=== PATIENT | female | born 1985 | race African-American/Black ===

== ENCOUNTER 2018-04-28 14:33 | Emergency (ER) | payer OTHER ==
[~2018-04-28] VITALS: Ht 167.6 cm; Wt 97.5 kg
[2018-04-28 14:40] VITALS: BP 130/90
[2018-04-28] MEDS ORDERED: Morphine Sulfate 4mg/ml Inj (IV USE ONLY) IVP ONE (15:00)
--- NOTE | 2018-04-28 15:04 | Emergency Room Report ---
History of Present Illness General Chief Complaint: Abdominal Pain Source: Patient Present Illness HPI 32-year-old female presents ED for evaluation. Patient brought in by EMS complaining of abdominal pain which started 2 days ago. Pain is sharp, suprapubic, 9 out of 10, nonradiating. Notes nausea and vomiting. Denies fevers or chills. Denies dysuria or hematuria. Denies chest pain or shortness of breath. No other aggravating relieving factors. Denies any other associated symptoms Allergies: Coded Allergies: No Known Allergies (Unverified , 04/28/18) Patient History Past Medical History: none, HTN, asthma Past Surgical History: none Pertinent Family History: none Social History: Denies: smoking, alcohol use, drug use Now: No Immunizations: UTD Reviewed Nursing Documentation: PMH: Agreed; PSxH: Agreed Nursing Documentation-PMH Hx Hypertension: Yes Hx Asthma: Yes Review of Systems All Other Systems: negative except mentioned in HPI Physical Exam Vital Signs Date Time Temp Pulse Resp B/P (MAP) Pulse Ox O2 Delivery O2 Flow Rate FiO2 04/28/18 14:30 97.8 80 16 130/90 98 Room Air 97.9 Sp02 EP Interpretation: reviewed, normal General Appearance: no apparent distress, alert, GCS 15, non-toxic Head: normocephalic, atraumatic Eyes: bilateral eye normal inspection, bilateral eye PERRL ENT: hearing grossly normal, normal pharynx, no angioedema, normal voice Neck: full range of motion, supple/symm/no masses Respiratory: chest non-tender, lungs clear, normal breath sounds, speaking full sentences Cardiovascular #1: regular rate, rhythm, no edema Cardiovascular #2: 2+ carotid (R), 2+ carotid (L), 2+ radial (R), 2+ radial (L) , 2+ dorsalis pedis (R), 2+ dorsalis pedis (L) Gastrointestinal: normal bowel sounds, soft, non-distended, no guarding, no rebound, tenderness - suprapubic Rectal: deferred Genitourinary: normal inspection, no CVA tenderness Musculoskeletal: back normal, gait/station normal, normal range of motion, non- tender Neurologic: alert, oriented x3, responsive, motor strength/tone normal, sensory intact, speech normal Psychiatric: judgement/insight normal, memory normal, mood/affect normal, no suicidal/homicidal ideation Reflexes: 3+ bicep (R), 3+ bicep (L), 3+ tricep (R), 3+ tricep (L), 3+ knee (R) , 3+ knee (L) Skin: normal color, no rash, warm/dry, well hydrated Lymphatic: no adenopathy Medical Decision Making Diagnostic Impression: Primary Impression: Cystitis Additional Impression: Nabothian cyst ER Course Hospital Course 32-year-old F presents to ED with suprapubic abdominal pain Differential diagnosis includes- UTI, cystitis, ovarian cyst/torsion Clinical course Patient placed on stretcher. After initial history and physical I ordered labs , IV fluids, pain medications and pelvic US Labs - no leukocytosis, electrolytes ok, LFTs normal, UA + UTI pelvic US - nabothian cyst, good flow to bilateral ovaries Discussed findings with patient. Patient states for discharge with close outpatient follow-up. I'll provide PMD referrals. We will discharge him antibiotics, pain medications I feel this is a highly complex case requiring extensive working including EKG/ Rhythm strip, Xray/CT/US, Blood/urine lab work, repeat exams while in ED, and administration of strong opiates/narcotics for pain control, admission to hospital or close patient follow up. Diagnosis - cystitis, nabothian cyst Stable and discharged to home with Rx Tylenol #3, pyridium, macrobid, zofran. Followup with PMD. Return to ED if symptoms recur or worsen Labs Test 04/28/18 15:00 White Blood Count 9.0 K/UL (4.8-10.8) Red Blood Count 3.55 M/UL (4.20-5.40) Hemoglobin 10.8 G/DL (12.0-16.0) Hematocrit 31.1 % (37.0-47.0) Mean Corpuscular Volume 87 FL (80-99) Mean Corpuscular Hemoglobin 30.4 PG (27.0-31.0) Mean Corpuscular Hemoglobin Concent 34.7 G/DL (32.0-36.0) Red Cell Distribution Width 14.0 % (11.6-14.8) Platelet Count 368 K/UL (150-450) Mean Platelet Volume 5.9 FL (6.5-10.1) Neutrophils (%) (Auto) 63.3 % (45.0-75.0) Lymphocytes (%) (Auto) 23.9 % (20.0-45.0) Monocytes (%) (Auto) 8.2 % (1.0-10.0) Eosinophils (%) (Auto) 2.7 % (0.0-3.0) Basophils (%) (Auto) 1.8 % (0.0-2.0) Urine Color Sally Urine Appearance Cloudy Urine pH 6 (4.5-8.0) Urine Specific [place] 1.015 (1.005-1.035) Urine Protein 2+ (NEGATIVE) Urine Glucose (UA) Negative (NEGATIVE) Urine Ketones Negative (NEGATIVE) Urine Blood Negative (NEGATIVE) Urine Nitrite Negative (NEGATIVE) Urine Bilirubin Negative (NEGATIVE) Urine Ictotest Negative (NEGATIVE) Urine Urobilinogen Normal MG/DL (0.0-1.0) Urine Leukocyte Esterase 3+ (NEGATIVE) Urine RBC 0-2 /HPF (0 - 2) Urine WBC 5-10 /HPF (0 - 2) Urine Squamous Epithelial Cells Many /LPF (NONE/OCC) Urine Bacteria Moderate /HPF (NONE) Urine HCG, Qualitative Negative (NEGATIVE) Sodium Level 140 MMOL/L (136-145) Potassium Level 3.6 MMOL/L (3.5-5.1) Chloride Level 104 MMOL/L (98-107) Carbon Dioxide Level 28 MMOL/L (21-32) Anion Gap 8 mmol/L (5-15) Blood Urea Nitrogen 7 mg/dL (7-18) Creatinine 1.2 MG/DL (0.55-1.30) Estimat Glomerular Filtration Rate > 60 mL/min (>60) Glucose Level 117 MG/DL (74-106) Calcium Level 9.6 MG/DL (8.5-10.1) Total Bilirubin 0.6 MG/DL (0.2-1.0) Aspartate Amino Transf (AST/SGOT) 18 U/L (15-37) Alanine Aminotransferase (ALT/SGPT) 32 U/L (12-78) Alkaline Phosphatase 61 U/L (46-116) Total Protein 7.9 G/DL (6.4-8.2) Albumin 3.6 G/DL (3.4-5.0) Globulin 4.3 g/dL Albumin/Globulin Ratio 0.8 (1.0-2.7) Lipase 114 U/L (73-393) CT/MRI/US Diagnostic Results CT/MRI/US Diagnostic Results : Imaging Test Ordered: Pelvic US\ Impression nabothian cyst. ovaries unremarkable - good flow. Last Vital Signs Date Time Temp Pulse Resp B/P (MAP) Pulse Ox O2 Delivery O2 Flow Rate FiO2 04/28/18 14:40 97.9 16 130/90 98 Room Air 97.9 04/28/18 14:30 80 Status: improved Disposition: HOME, SELF-CARE Condition: Stable Scripts Nitrofurantoin Monohyd/M-Cryst* (MACROBID 100 MG*) 100 Mg Capsule 100 MG ORAL EVERY 12 HOURS for 7 Days, CAP Prov: Richard Johnson MD 04/28/18 Phenazopyridine Hcl* (PYRIDIUM*) 100 Mg Tablet 100 MG ORAL THREE TIMES A DAY for 3 Days, TAB Prov: Richard Johnson MD 04/28/18 Ondansetron Odt* (ZOFRAN ODT*) 4 Mg Tab.rapdis 4 MG BC EVERY 6 HOURS PRN for Nausea & Vomiting, #10 TAB 0 Refills Prov: Richard Johnson MD 04/28/18 Acetaminophen With Codeine (T#3) (TYLENOL #3 TAB*) Y Tab 1 TAB ORAL Q8H PRN for For Pain, #20 TAB Prov: Richard Johnson MD 04/28/18 Richard Johnson MD Apr 28, 2018 15:04
[2018-04-28 15:13] LABS: APPEARANCE,URINE CLOUDY; BILIRUBIN, URINE NEGATIVE (NEGATIVE); COLOR,URINE AMBER; GLUCOSE, URINE (UA) NEGATIVE (NEGATIVE); KETONES,URINE NEGATIVE (NEGATIVE); LEUKOCYTE ESTERASE ,URINE 3+ (NEGATIVE); NITRITE,URINE NEGATIVE (NEGATIVE); PH,URINE 6 (4.5-8.0); PROTEIN,URINE 2+ (NEGATIVE); UROBILINOGEN,URINE NORMAL MG/DL (0.0-1.0)
[2018-04-28 15:20] LABS: BASOPHILS % (AUTO) 1.8 % (0.0-2.0); EOSINOPHILS % (AUTO) 2.7 % (0.0-3.0); HEMATOCRIT 31.1 % (37.0-47.0); HEMOGLOBIN 10.8 G/DL (12.0-16.0); LYMPHOCYTES % (AUTO) 23.9 % (20.0-45.0); MEAN CORPUSCULAR VOLUME 87 FL (80-99); MONOCYTES % (AUTO) 8.2 % (1.0-10.0); NEUTROPHILS % (AUTO) 63.3 % (45.0-75.0); PLATELET COUNT 368 K/UL (150-450); RED BLOOD COUNT 3.55 M/UL (4.20-5.40)
[2018-04-28 15:35] LABS: ANION GAP 8 mmol/L (5-15); BLOOD UREA NITROGEN 7 mg/dL (7-18); CALCIUM 9.6 MG/DL (8.5-10.1); CARBON DIOXIDE 28 MMOL/L (21-32); CHLORIDE 104 MMOL/L (98-107); CREATININE 1.2 MG/DL (0.55-1.30); POTASSIUM 3.6 MMOL/L (3.5-5.1); SODIUM 140 MMOL/L (136-145)
[2018-04-28 15:39] LABS: ALANINE AMINOTRANSFERASE 32 U/L (12-78); ALBUMIN 3.6 G/DL (3.4-5.0); ALBUMIN/GLOBULIN RATIO 0.8 (1.0-2.7); ALKALINE PHOSPHATASE 61 U/L (46-116); ASPARTATE AMINO TRANSFERASE 18 U/L (15-37); BILIRUBIN,TOTAL 0.6 MG/DL (0.2-1.0)
[2018-04-28] MEDS ORDERED: ONDANSETRON ODT4 MG BC (16:23)
[2018-04-28] MEDS ORDERED: PHENAZOPYRIDIN100 MG ORAL (16:23)
[2018-04-28] MEDS ORDERED: ACETAMINOPHEN-1 EAC1 ORAL (16:23)
[2018-04-28] MEDS ORDERED: NITROFURANTOIN100 M2 ORAL (16:26)
[2018-04-28 16:34] VITALS: BP 156/70
--- NOTE | 2018-05-02 16:24 | Diagnostic Imaging Report ---
Indication: Pelvic pain, negative test Technique: Transabdominal and transvaginal images Comparison: 12/11/2010 Findings: No transabdominal images obtained. Uterus measures 8.4 cm length by 5.1 cm AP. Endometrium measures 1 mm thick. No myometrial abnormality. Small nabothian cyst is seen within the cervix. The right ovary measures 3.1 cm in length. The left ovary measures 3 cm length. No adnexal mass. Impression: Limited exam. Grossly negative This agrees with the preliminary interpretation provided overnight by [facility] service. Multiple attempts at contacting the patient to obtain further images was unsuccessful.
== END 2018-04-28 16:34 | disposition home or self-care (01) ==
LOC: EDBD 14:33 → EDSEX 14:33 → EMR 15:54
DX: N30.90 Cystitis, unspecified without hematuria (principal); N88.8 Other specified noninflammatory disorders of cervix uteri; I10 Essential (primary) hypertension; J45.909 Unspecified asthma, uncomplicated
CPT/HCPCS: 36415; 76830; 76856; 80053; 81003; 81025; 83690; 85025; 87086; 87181; 96361; 96374; 96375; 99285; J2270; J2405; S0028

== ENCOUNTER 2018-08-31 15:15 | Emergency (ER) | payer OTHER ==
[~2018-08-31] VITALS: Ht 180.3 cm; Wt 115.7 kg
[~2018-08-31 15:15] MED LIST: ACETAMINOPHEN-1 EAC1 ORAL; NITROFURANTOIN100 M2 ORAL; NKM; ONDANSETRON ODT4 MG BC; PHENAZOPYRIDIN100 MG ORAL
--- NOTE | 2018-08-31 15:24 | Emergency Room Report ---
History of Present Illness General Chief Complaint: Abdominal Pain Source: Patient, EMS Present Illness HPI Patient presents with 2 days of lower abdominal pain and vomiting. She states the pain is severe at this time. She denies ever having this before. It feels like aching and pressure in the suprapubic area midline. She denies any fevers or chills. She denies diarrhea also. She states her last period was normal August 12. She denies dysuria or vaginal discharge. Pain is rated 10/10, aching pressure. Pain does not radiate. She moved her bowels yesterday and excrement was normal. Patient lives asthma and hypertension as medical problems however medications are not listed. She denies wheezing. She was treated in April for cystitis. Allergies: Coded Allergies: No Known Allergies (Unverified , 04/28/18) Patient History Past Medical History: see triage record, old chart reviewed Social History: Denies: smoking, alcohol use, drug use Social History Narrative From home Last Menstrual Period: 08/11/2018 Reviewed Nursing Documentation: PMH: Agreed; PSxH: Agreed Nursing Documentation-PMH Past Medical History: No History, Except For Hx Hypertension: Yes Hx Asthma: Yes Review of Systems All Other Systems: negative except mentioned in HPI Physical Exam Vital Signs Date Time Temp Pulse Resp B/P (MAP) Pulse Ox O2 Delivery O2 Flow Rate FiO2 08/31/18 15:09 98.2 88 20 140/90 98 Room Air Sp02 EP Interpretation: reviewed, normal General Appearance: alert, mild distress Head: normocephalic Eyes: bilateral eye normal inspection ENT: moist mucus membranes Neck: supple Respiratory: lungs clear, normal breath sounds Cardiovascular #1: regular rate, rhythm Cardiovascular #2: 2+ radial (R) Gastrointestinal: soft, no rebound, guarding - more on R, tenderness, decreased bowel sounds Genitourinary: no CVA tenderness Musculoskeletal: back normal, normal range of motion Neurologic: alert, oriented x3, grossly normal Psychiatric: anxious - With pain Skin: normal inspection, warm/dry Medical Decision Making Diagnostic Impression: Primary Impression: Abdominal pain Qualified Codes: R10.30 - Lower abdominal pain, unspecified ER Course Patient presents with 2 days of abdominal pain is lower abdomen. Differential includes ectopic, gastroenteritis, appendicitis, pelvic inflammatory disease amongst others. Evaluation will be with labs chest x-ray and CT of the abdomen. She'll also receive IV hydration and analgesia. White count normal. Urinalysis unremarkable. Chest x-ray unremarkable Pain is improved. Delay for CT. CT with question of colitis. No surgical pathology. Suggestion of thickening of distal esophagus. Patient reexamined abdomen is soft. He is markedly improved with decreased pain at this time. We discussed outpatient observation and returning if pain increases. Patient stable for outpatient observation and treatment. Laboratory Tests Test 08/31/18 15:27 White Blood Count 8.2 K/UL (4.8-10.8) Red Blood Count 4.25 M/UL (4.20-5.40) Hemoglobin 12.5 G/DL (12.0-16.0) Hematocrit 37.3 % (37.0-47.0) Mean Corpuscular Volume 88 FL (80-99) Mean Corpuscular Hemoglobin 29.3 PG (27.0-31.0) Mean Corpuscular Hemoglobin Concent 33.4 G/DL (32.0-36.0) Red Cell Distribution Width 13.0 % (11.6-14.8) Platelet Count 343 K/UL (150-450) Mean Platelet Volume 6.5 FL (6.5-10.1) Neutrophils (%) (Auto) 57.4 % (45.0-75.0) Lymphocytes (%) (Auto) 29.0 % (20.0-45.0) Monocytes (%) (Auto) 11.2 % (1.0-10.0) H Eosinophils (%) (Auto) 1.0 % (0.0-3.0) Basophils (%) (Auto) 1.5 % (0.0-2.0) Prothrombin Time 12.0 SEC (9.30-11.50) H Prothrombin Time INR 1.1 (0.9-1.1) PTT 25 SEC (23-33) Sodium Level 142 MMOL/L (136-145) Potassium Level 2.6 MMOL/L (3.5-5.1) *L Chloride Level 101 MMOL/L (98-107) Carbon Dioxide Level 28 MMOL/L (21-32) Anion Gap 13 mmol/L (5-15) Blood Urea Nitrogen 12 mg/dL (7-18) Creatinine 1.2 MG/DL (0.55-1.30) Estimate Glomerular Filtration Rate > 60 mL/min (>60) Glucose Level 127 MG/DL (74-106) H Calcium Level 10.0 MG/DL (8.5-10.1) Total Bilirubin 0.8 MG/DL (0.2-1.0) Aspartate Amino Transferase (AST) 22 U/L (15-37) Alanine Aminotransferase (ALT) 29 U/L (12-78) Alkaline Phosphatase 59 U/L (46-116) Total Protein 8.5 G/DL (6.4-8.2) H Albumin 4.3 G/DL (3.4-5.0) Globulin 4.2 g/dL Albumin/Globulin Ratio 1.0 (1.0-2.7) Lipase 112 U/L (73-393) Human Chorionic Gonadotropin, Qual Negative (NEGATIVE) Rhythm Strip Diag. Results EP Interpretation: yes Rhythm: NSR, no PVC's, no ectopy Chest X-Ray Diagnostic Results Chest X-Ray Diagnostic Results : Chest X-Ray Ordered: Yes # of Views/Limited/Complete: 1 View Indication: Other EP Interpretation: Yes Interpretation: no consolidation, no effusion, no pneumothorax Impression: No acute disease Electronically Signed by: Electronically signed by Arnulfo Mullins MD CT/MRI/US Diagnostic Results CT/MRI/US Diagnostic Results : Imaging Test Ordered: Abdomen and pelvis Impression Suggestion of colitis and esophagitis. No surgical pathology Last Vital Signs Date Time Temp Pulse Resp B/P (MAP) Pulse Ox O2 Delivery O2 Flow Rate FiO2 08/31/18 19:15 98.2 64 18 139/82 98 Room Air Status: improved Disposition: HOME, SELF-CARE Condition: Improved Scripts Ondansetron Odt* (ZOFRAN ODT*) 4 Mg Tab.rapdis 4 MG BC EVERY 8 HOURS, #6 TAB 0 Refills Prov: Arnulfo Mullins MD 08/31/18 Acetaminophen (Tylenol) 325 Mg Tablet 650 MG ORAL Q6H PRN for Prn Pain/Headache/Temp > 101, #20 TAB 0 Refills Prov: Arnulfo Mullins MD 08/31/18 Tramadol Hcl* (ULTRAM*) 50 Mg Tablet 50 MG ORAL Q6H PRN for For Pain, #8 TAB 0 Refills Prov: Arnulfo Mullins MD 08/31/18 Arnulfo Mullins MD Aug 31, 2018 15:24
[2018-08-31] MEDS ORDERED: Morphine Sulfate 4mg/ml Inj (IV/IM USE ONLY) IVP ONE (15:30)
[2018-08-31] MEDS ORDERED: DiphenhydrAMINE 50mg/ml Inj IVP ONE (15:30)
[2018-08-31] MEDS ORDERED: Metoclopramide 10mg/2ml Inj IVP ONE (15:30)
[2018-08-31] MEDS ORDERED: Isovue-300 100ml vial INJ PRN (15:45)
[2018-08-31 15:54] VITALS: BP 180/90
--- NOTE | 2018-08-31 15:59 | NUR ---
ED Nurse Note:pt. was BIBA from home with nausea vomiting bile, pt. is A/Ox4 ambulatory, blood was sent to labs iv fluids and meds were given
[2018-08-31 16:03] LABS: BASOPHILS % (AUTO) 1.5 % (0.0-2.0); HEMATOCRIT 37.3 % (37.0-47.0); HEMOGLOBIN 12.5 G/DL (12.0-16.0); MEAN CORPUSCULAR VOLUME 88 FL (80-99); MONOCYTES % (AUTO) 11.2 % (1.0-10.0); NEUTROPHILS % (AUTO) 57.4 % (45.0-75.0); PLATELET COUNT 343 K/UL (150-450); RED BLOOD COUNT 4.25 M/UL (4.20-5.40); WHITE BLOOD COUNT 8.2 K/UL (4.8-10.8)
[2018-08-31 16:13] LABS: INR 1.1 (0.9-1.1)
[2018-08-31 16:21] LABS: ALANINE AMINOTRANSFERASE 29 U/L (12-78); ALBUMIN 4.3 G/DL (3.4-5.0); ALKALINE PHOSPHATASE 59 U/L (46-116); ANION GAP 13 mmol/L (5-15); ASPARTATE AMINO TRANSFERASE 22 U/L (15-37); BILIRUBIN,TOTAL 0.8 MG/DL (0.2-1.0); BLOOD UREA NITROGEN 12 mg/dL (7-18); CARBON DIOXIDE 28 MMOL/L (21-32); CHLORIDE 101 MMOL/L (98-107); CREATININE 1.2 MG/DL (0.55-1.30); SODIUM 142 MMOL/L (136-145)
--- NOTE | 2018-08-31 16:23 | Diagnostic Imaging Report ---
EXAM: XR Chest, 1 View CLINICAL HISTORY: ABD PAIN TECHNIQUE: Frontal view of the chest. COMPARISON: No relevant prior studies available. FINDINGS: Lungs: Unremarkable. No consolidation. Pleural space: Unremarkable. No pneumothorax. Heart: Unremarkable. No cardiomegaly. Mediastinum: Unremarkable. Bones/joints: Unremarkable. IMPRESSION: No acute cardiopulmonary disease.
[2018-08-31 16:36] LABS: POTASSIUM 2.6 MMOL/L (3.5-5.1)
--- NOTE | 2018-08-31 18:29 | Diagnostic Imaging Report ---
EXAM: CT Abdomen and Pelvis With Intravenous Contrast CLINICAL HISTORY: ABD PAIN TECHNIQUE: Axial computed tomography images of the abdomen and pelvis with intravenous contrast. CTDI is 20 mGy and DLP is 1135 mGy-cm. One or more of the following dose reduction techniques were used: automated exposure control, adjustment of the mA and/or kV according to patient size, use of iterative reconstruction technique. COMPARISON: No relevant prior studies available. FINDINGS: Lung bases: No mass. No consolidation. Mediastinum: Mildly thickened distal esophagus, cannot exclude esophagitis or lesion. ABDOMEN: Liver: Unremarkable. No mass. Gallbladder and bile ducts: Cholecystectomy. Pancreas: Unremarkable. Spleen: Unremarkable. Adrenals: Unremarkable. Kidneys and ureters: Unremarkable. No hydronephrosis. Stomach and bowel: Mild diffuse colonic thickening which may be underdistention versus colitis. No bowel obstruction or diverticulitis. PELVIS: Appendix: No findings to suggest acute appendicitis. Bladder: Unremarkable. No mass. Reproductive: Unremarkable as visualized. ABDOMEN and PELVIS: Intraperitoneal space: No free air. Bones/joints: No acute fracture. Soft tissues: Unremarkable. Vasculature: Unremarkable. Lymph nodes: Unremarkable. No enlarged lymph nodes. IMPRESSION: 1. Mild diffuse colonic thickening which may be underdistention versus colitis. No bowel obstruction or diverticulitis. 2. Mildly thickened distal esophagus, cannot exclude esophagitis or lesion.
[2018-08-31 18:32] VITALS: BP 139/82
[2018-08-31] MEDS ORDERED: TRAMADOL HCL50 MG ORAL (19:10)
[2018-08-31] MEDS ORDERED: TYLENOL325 MG ORAL (19:10)
[2018-08-31] MEDS ORDERED: ONDANSETRON ODT4 MG BC (19:10)
[2018-08-31 19:15] VITALS: BP 139/82
--- NOTE | 2018-08-31 19:15 | NUR ---
ED Nurse Note: Patient cleared for discharge per ERMD. AO4. NAD. VSS. Patient given prescriptions and discharge instructions; verbalized understanding. IV and ID band removed. Patient ambulated out with all personal belongings with steady gait.
== END 2018-08-31 19:15 | disposition home or self-care (01) ==
LOC: EDBD 15:15 → EMR 15:54
DX: R10.30 Lower abdominal pain, unspecified (principal); J45.909 Unspecified asthma, uncomplicated; I10 Essential (primary) hypertension
CPT/HCPCS: 36415; 71045; 74177; 80053; 83690; 84703; 85025; 85610; 85730; 86850; 86900; 86901; 96361; 96365; 96375; 99284; J1200; J2270; J2765; J3480; Q9967; S0028

== ENCOUNTER 2020-09-18 03:57 | Inpatient (IN) | payer OTHER ==
[2020-09-18] VITALS (10 sets, daily range): BP systolic 129–202; BP diastolic 81–103
[~2020-09-18] VITALS: Ht 180.3 cm; Wt 97.5 kg
[~2020-09-18 03:57] MED LIST changes: +TRAMADOL HCL50 MG ORAL; +TYLENOL325 MG ORAL
--- NOTE | 2020-09-18 04:15 | NUR ---
ED Nurse Note: Pt BIBA from work, here with c/o severer abdominal pain with nausea and vomiting x 3 days with worsening for past 2 hours, pt arrived with active emesis and incontinent of diarrhea, pt laying in bed on left side stating pain is in right abdoman and 10/10, pt is crying and yelling due to pain, pt immediately gowned, placed on monitoring, IV line placed and labs drawn, will continue to monitor as waiting for md orders.
--- NOTE | 2020-09-18 04:22 | Emergency Room Report ---
History of Present Illness General Chief Complaint: Abdominal Pain Source: Patient, Medical Record Present Illness HPI 35-year-old female with no significant past medical history. She presents with chief complaint abdominal pain with nausea and vomiting. Onset for last 3 days. It got worse tonight where she has uncontrollable vomiting while at work. Pain is 10 out of 10. Diffuse in nature. Vomiting is nonbloody nonbilious. also unable to controlled her urination due to vomiting . Denies any trauma. denies any alcohol or drugs. 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 COVID-19 Screening: Negative COVID-19 COVID-19 Testing Source: clinic Patient History Past Medical History: see triage record, old chart reviewed Past Surgical History: none Pertinent Family History: none Social History: Denies: smoking Last Menstrual Period: n/a Now: No Immunizations: other Reviewed Nursing Documentation: PMH: Agreed; PSxH: Agreed Nursing Documentation-PMH Past Medical History: No Stated History Hx Hypertension: Yes Hx Asthma: Yes Review of Systems Eye: Denies: eye pain, blurred vision ENT: Denies: ear pain, nose congestion, throat swelling Respiratory: Denies: cough, shortness of breath Cardiovascular: Denies: chest pain, palpitations Gastrointestinal: Reports: abdominal pain, diarrhea, nausea, vomiting Musculoskeletal: Denies: back pain, joint pain Skin: Denies: rash Neurological: Denies: headache, numbness Endocrine: Denies: increased thirst, increased urine Hematologic/Lymphatic: Denies: easy bruising All Other Systems: negative except mentioned in HPI Physical Exam Vital Signs Date Time Temp Pulse Resp B/P (MAP) Pulse Ox O2 Delivery O2 Flow Rate FiO2 09/18/20 03:54 97.5 73 16 211/104 (139) 100 Room Air Vitals with high blood pressure Sp02 EP Interpretation: reviewed, normal General Appearance: well appearing, no apparent distress, alert Head: normocephalic, atraumatic Eyes: bilateral eye PERRL, bilateral eye EOMI ENT: hearing grossly normal, normal pharynx Neck: full range of motion, supple, no meningismus Respiratory: chest non-tender, lungs clear, normal breath sounds Cardiovascular #1: regular rate, rhythm, no murmur Gastrointestinal: no mass, no organomegaly, no bruit, non-distended, tenderness - Diffuse, decreased bowel sounds Musculoskeletal: back normal, normal range of motion, gait/station normal Psychiatric: mood/affect normal Medical Decision Making Diagnostic Impression: Primary Impression: Abdominal pain Qualified Codes: R10.84 - Generalized abdominal pain Additional Impressions: Intractable vomiting with nausea Hypertension Qualified Codes: I10 - Essential (primary) hypertension ER Course This patient presents with abdominal pain with vomiting. Symptoms seem to be very severe with intractable vomiting here. She received multiple doses of pain medication and antinausea medication. Blood pressure was also very elevated. Patient said that she had history of high blood pressure when she was . Not take any medication. I will order a CT head to make sure that this is not an intracranial bleed causing her problem. CT abdomen pelvis reading is pending. If symptoms do not improve, patient most likely will be admitted versus transfer. CT/MRI/US Diagnostic Results CT/MRI/US Diagnostic Results : Imaging Test Ordered: CT abdomen pelvis Impression Read by radiologist. No acute finding. Last Vital Signs Date Time Temp Pulse Resp B/P (MAP) Pulse Ox O2 Delivery O2 Flow Rate FiO2 09/18/20 03:54 97.5 73 16 211/104 (139) 100 Room Air Status: improved Disposition: ADMITTED INPATIENT Condition: Serious Referrals: NON PHYSICIAN (PCP) Clay Clarke MD Sep 18, 2020 04:22
[2020-09-18] MEDS ORDERED: HYDROmorphone 1mg/ml Carpuject IVP ONE ×2 (04:30→05:30)
[2020-09-18 04:53] LABS: APPEARANCE,URINE CLEAR; BILIRUBIN, URINE NEGATIVE (NEGATIVE); COLOR,URINE PALE YELLOW; GLUCOSE, URINE (UA) NEGATIVE (NEGATIVE); KETONES,URINE 1+ (NEGATIVE); LEUKOCYTE ESTERASE ,URINE NEGATIVE (NEGATIVE); NITRITE,URINE NEGATIVE (NEGATIVE); PH,URINE 8 (4.5-8.0); PROTEIN,URINE 1+ (NEGATIVE); UROBILINOGEN,URINE NORMAL MG/DL (0.0-1.0)
[2020-09-18 04:53] LABS: HEMATOCRIT 42.2 % (37.0-47.0); HEMOGLOBIN 13.7 G/DL (12.0-16.0); LYMPHOCYTES % (AUTO) 13.8 % (20.0-45.0); MEAN CORPUSCULAR VOLUME 94 FL (80-99); MONOCYTES % (AUTO) 4.6 % (1.0-10.0); NEUTROPHILS % (AUTO) 79.5 % (45.0-75.0); PLATELET COUNT 319 K/UL (150-450); RED BLOOD COUNT 4.46 M/UL (4.20-5.40); RED CELL DISTRIBUTION WIDTH 13.2 % (11.6-14.8); WHITE BLOOD COUNT 10.4 K/UL (4.8-10.8)
[2020-09-18 05:11] LABS: ALANINE AMINOTRANSFERASE 27 U/L (12-78); ALBUMIN 4.4 G/DL (3.4-5.0); ALKALINE PHOSPHATASE 64 U/L (46-116); ANION GAP 13 mmol/L (5-15); ASPARTATE AMINO TRANSFERASE 26 U/L (15-37); BILIRUBIN,TOTAL 0.7 MG/DL (0.2-1.0); BLOOD UREA NITROGEN 4 mg/dL (7-18); CALCIUM 9.8 MG/DL (8.5-10.1); CARBON DIOXIDE 25 MMOL/L (21-32); CHLORIDE 99 MMOL/L (98-107); CREATININE 0.7 MG/DL (0.55-1.30); POTASSIUM 3.3 MMOL/L (3.5-5.1); SODIUM 137 MMOL/L (136-145)
--- NOTE | 2020-09-18 05:16 | NUR ---
Pt taken down to CT via [facility]ick[facility] with tech.
--- NOTE | 2020-09-18 05:57 | NUR ---
Pt taken to Ct imaging via [place] in stable condition.
--- NOTE | 2020-09-18 05:59 | Diagnostic Imaging Report ---
EXAM: CT Abdomen and Pelvis Without Intravenous Contrast CLINICAL HISTORY: ABD PAIN TECHNIQUE: Axial computed tomography images of the abdomen and pelvis without intravenous contrast. CTDI is 13.90 mGy and DLP is 751.70 mGy-cm. One or more of the following dose reduction techniques were used: automated exposure control, adjustment of the mA and/or kV according to patient size, use of iterative reconstruction technique. COMPARISON: CT abdomen and pelvis August 31, 2018. FINDINGS: Lung bases: The lung bases are clear. ABDOMEN: Liver: No focal hepatic lesion. Gallbladder and bile ducts: Cholecystectomy. No ductal dilation. Pancreas: Unremarkable. No ductal dilation. Spleen: Unremarkable. No splenomegaly. Adrenals: Unremarkable. No mass. Kidneys and ureters: No hydronephrosis or nephrolithiasis. No definite obstructive uropathy. Stomach and bowel: No acute diverticulitis. No small bowel obstruction. PELVIS: Appendix: Normal appendix visualized. Bladder: Unremarkable. No stones. Reproductive: IUD, incidentally noted in the uterus. ABDOMEN and PELVIS: Intraperitoneal space: Unremarkable. No free air. No significant fluid collection. Bones/joints: Degenerative changes at L5-S1, consisting of posterior spondylitic ridging and disc space narrowing. No acute fracture. No dislocation. Soft tissues: Unremarkable. Vasculature: Pelvic organs are suboptimally evaluated without intravenous/oral contrast. No abdominal aortic aneurysm. Lymph nodes: Unremarkable. No enlarged lymph nodes. IMPRESSION: Evaluation limited due to lack of intravenous and oral contrast as well as paucity of intra-abdominal fat. Post cholecystectomy. No acute diverticulitis. No small bowel obstruction. Normal appendix is visualized. No free intraperitoneal air. <MYCVCSECTION> Communications: 09/18/20 05:58 Call Doctor Regarding Other, called Dr. Clarke on 09/18 05:56 (-08:00)
--- NOTE | 2020-09-18 06:12 | NUR ---
ED Nurse Note: Pt returned from imaging, continues to moan and groan in pain, also stating her head hurts, pt re-placed to monitoring, b/p remains elevated after MD isis aware, will continue to monitor while waiting for results and disposition.
--- NOTE | 2020-09-18 06:16 | Diagnostic Imaging Report ---
EXAM: CT Head Without Intravenous Contrast CLINICAL HISTORY: AMS TECHNIQUE: Axial computed tomography images of the head/brain without intravenous contrast. CTDI is 53.4 mGy and DLP is 1179.1 mGy-cm. One or more of the following dose reduction techniques were used: automated exposure control, adjustment of the mA and/or kV according to patient size, use of iterative reconstruction technique. COMPARISON: No relevant prior studies available. FINDINGS: No acute intracranial hemorrhage. No midline shift or mass effect. The territorial haney-white matter differentiation is maintained throughout. The ventricles and sulci are commensurate with age. The visualized orbits appear grossly unremarkable. The calvarium is intact. Mild hyperostosis frontalis interna. The visualized paranasal sinuses and mastoid air cells are grossly clear. IMPRESSION: No acute intracranial hemorrhage, midline shift, or mass effect.
[2020-09-18] MEDS ORDERED: Ketorolac 30mg Inj IV ONE (06:45)
[2020-09-18] MEDS ORDERED: Methocarbamol 750mg tab ORAL ONE (06:45)
--- NOTE | 2020-09-18 07:00 | NUR ---
ED Nurse Note: Pt b/p is decreasing, remains on cardiac monitoring, denies abdominal pain and now c/o back pain, pt also changes complaints, pt re-medicated for pain, will give report to am nurse to resume care, pt in bed, IV site patent, report given.
--- NOTE | 2020-09-18 07:11 | NUR ---
HAND-OFF: Report given to ALEAH Houser.
--- NOTE | 2020-09-18 08:34 | NUR ---
ED Nurse Note:pt. still have emesis and elevated BP, ER MD notified and pt. received IV meds for that
[2020-09-18] MEDS ORDERED: Lidocaine 2% Visc 15ml soln ORAL ONE (10:00)
[2020-09-18] MEDS ORDERED: Dicyclomine HCl 10mg/5ml oral soln ORAL ONE (10:00)
[2020-09-18] MEDS ORDERED: Mylanta II UD 30ml ORAL ONE (10:00)
--- NOTE | 2020-09-18 11:04 | NUR ---
HAND-OFF: Report given to Daisha.
--- NOTE | 2020-09-18 12:37 | General Progress Note ---
Subjective ROS Limited/Unobtainable: Yes Allergies: Coded Allergies: No Known Allergies (Unverified , 04/28/18) Objective Last 24 Hour Vital Signs Date Time Temp Pulse Resp B/P (MAP) Pulse Ox O2 Delivery O2 Flow Rate FiO2 09/18/20 09:34 82 18 161/103 98 Room Air 09/18/20 08:30 182/93 09/18/20 08:28 81 18 182/93 98 Room Air 09/18/20 07:57 68 18 169/82 98 Room Air 09/18/20 07:20 79.0 09/18/20 06:33 79.0 18 175/81 98 Room Air 09/18/20 06:10 97.0 65 16 185/97 100 Room Air 09/18/20 05:40 235/105 09/18/20 04:58 97.0 09/18/20 04:58 97.0 09/18/20 04:54 97.0 69 16 165/83 98 Room Air 09/18/20 03:54 97.5 73 16 211/104 (139) 100 Room Air Laboratory Tests 09/18/20 04:10: White Blood Count 10.4, Red Blood Count 4.46, Hemoglobin 13.7, Hematocrit 42.2, Mean Corpuscular Volume 94, Mean Corpuscular Hemoglobin 30.6, Mean Corpuscular Hemoglobin Concent 32.4, Red Cell Distribution Width 13.2, Platelet Count 319, Mean Platelet Volume 6.8, Neutrophils (%) (Auto) 79.5H, Lymphocytes (%) (Auto) 13.8L, Monocytes (%) (Auto) 4.6, Eosinophils (%) (Auto) 1.0, Basophils (%) (Auto) 1.0, Sodium Level 137, Potassium Level 3.3L, Chloride Level 99, Carbon Dioxide Level 25, Anion Gap 13, Blood Urea Nitrogen 4L, Creatinine 0.7, Estimat Glomerular Filtration Rate > 60, Glucose Level 135H, Lactic Acid Level 1.60, Calcium Level 9.8, Total Bilirubin 0.7, Aspartate Amino Transf (AST/SGOT) 26, Alanine Aminotransferase (ALT/SGPT) 27, Alkaline Phosphatase 64, Total Protein 8.9H, Albumin 4.4, Globulin 4.5, Albumin/Globulin Ratio 1.0, Lipase 307, Serum Alcohol < 3 09/18/20 04:40: Urine Color Pale yellow, Urine Appearance Clear, Urine pH 8, Urine Specific [place] 1.010, Urine Protein 1+H, Urine Glucose (UA) Negative, Urine Ketones 1+H , Urine Blood Negative, Urine Nitrite Negative, Urine Bilirubin Negative, Urine Urobilinogen Normal, Urine Leukocyte Esterase Negative, Urine RBC 0-2, Urine WBC 0-2, Urine Squamous Epithelial Cells Occasional, Urine Bacteria Occasional, Urine HCG, Qualitative Negative, Urine Opiates Screen Negative, Urine Barbiturates Screen Negative, Phencyclidine (PCP) Screen Negative, Urine Amphetamines Screen Negative, Urine Benzodiazepines Screen Negative, Urine Co carmen Screen Negative, Urine Marijuana (THC) Screen PositiveH Height (Feet): 5 Height (Inches): 11.00 Weight (Pounds): 215 General Appearance: alert EENT: normal ENT inspection Neck: supple Cardiovascular: normal rate Respiratory/Chest: lungs clear Abdomen: soft, hypoactive bowel sounds, tender Extremities: non-tender Assessment/Plan Assessment/Plan: ? cannabinoid hyperemesis syndrome neg CT h/o cholecystectomy normal labs ivf pain control repeat labs clears will Galileo Martinez MD Sep 18, 2020 12:37
--- NOTE | 2020-09-18 12:38 | NUR ---
ED Nurse Note: pt appears to be sleepy, transferred from [facility] onto [facility] bed for comfort. pt able to follow commands and transfer onto new bed. no acute distress is noted at this time
[2020-09-18] MEDS ORDERED: cloNIDine 0.2mg Tab ORAL ONE (13:15)
--- NOTE | 2020-09-18 14:49 | NUR ---
ED Nurse Note: report given to ALEAH Aquino on telemetry floor. pt will be transferred to [facility] in stable condition
--- NOTE | 2020-09-18 16:07 | Consultation ---
Consult Note Consult Note I am asked to evaluate the patient at the request of Dr. Brower for fluid and electrolyte management, and blood pressure management 35-year-old female with no significant past medical history. She presents with chief complaint abdominal pain with nausea and vomiting. Onset for last 3 days. It got worse tonight where she has uncontrollable vomiting while at work. Pain is 10 out of 10. Diffuse in nature. Vomiting is nonbloody nonbilious. also unable to controlled her urination due to vomiting . Denies any trauma. denies any alcohol or drugs. 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 Assessment/Plan Uncontrolled hypertension Abdominal pain and intractable vomiting Marijuana abuse History of asthma History of cholecystectomy N.p.o. IV hydration IV Reglan as needed As needed BP medications Norvasc 10 mg daily Monitor electrolytes Junior Herrera MD Sep 18, 2020 16:07
[2020-09-18] MEDS ORDERED: cloNIDine 0.2mg Tab ORAL PRN (16:15)
[2020-09-18] MEDS ORDERED: Ketorolac 30mg Inj IV PRN (16:15)
[2020-09-18] MEDS ORDERED: Metoclopramide 10mg/2ml Inj IVP PRN (16:15)
[2020-09-18] MEDS ORDERED: HYDROmorphone 1mg/ml Carpuject SUBQ PRN (16:15)
--- NOTE | 2020-09-18 17:00 | Consultation ---
History of Present Illness General Chief Complaint: Abdominal Pain Present Illness HPI 35-year-old female with no significant past medical history admitted through the ER with severe abdominal pain, nausea and vomiting x 3 days. Hypertensive emergency at time of admission SBP 202, in SR rate 80's. EKG SR T wave inversions V1V2, no ST elevation or depression. Echo pending. Does not take antihypertensives at home, does have a history of HTN during . We are asked to see the patient for cardiac evaluation and management of high blood pressure. Allergies: Coded Allergies: No Known Allergies (Unverified , 04/28/18) Medication History Scheduled No Known Medications* (NKM - No Known Medications*), 0 ., (Reported) Ondansetron Odt* (Zofran Odt*), 4 MG BC EVERY 8 HOURS Scheduled PRN Acetaminophen (Tylenol), 650 MG ORAL Q6H PRN for Prn Pain/Headache/Temp > 101 Tramadol Hcl* (Ultram*), 50 MG ORAL Q6H PRN for For Pain Patient History History Provided By: Patient Healthcare decision maker Resuscitation status Advanced Directive on File Review of Systems Constitutional: Reports: no symptoms Eye: Reports: no symptoms ENT: Reports: no symptoms Respiratory: Reports: no symptoms Cardiovascular: Reports: no symptoms Gastrointestinal: Reports: abdominal pain, nausea All Other Systems: negative except mentioned in HPI Physical Exam General Appearance: mild distress HEENT: PERRL Neck: non-tender, supple Respiratory/Chest: lungs clear Cardiovascular/Chest: normal peripheral pulses, regular rhythm, no JVD Abdomen: tender Extremities: no edema Skin Exam: warm/dry 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 grossly normal Last 24 Hour Vital Signs Date Time Temp Pulse Resp B/P (MAP) Pulse Ox O2 Delivery O2 Flow Rate FiO2 09/18/20 14:21 97.0 64 14 154/97 97 Room Air 09/18/20 13:06 20294 09/18/20 13:06 97.0 89 18 98 Room Air 09/18/20 09:34 82 18 161/103 98 Room Air 09/18/20 08:30 182/93 09/18/20 08:28 81 18 182/93 98 Room Air 09/18/20 07:57 68 18 169/82 98 Room Air 09/18/20 07:20 79.0 09/18/20 06:33 79.0 18 175/81 98 Room Air 09/18/20 06:10 97.0 65 16 185/97 100 Room Air 09/18/20 05:40 235/105 09/18/20 04:58 97.0 09/18/20 04:58 97.0 09/18/20 04:54 97.0 69 16 165/83 98 Room Air 09/18/20 03:54 97.5 73 16 211/104 (139) 100 Room Air Laboratory Tests Test 09/18/20 04:10 09/18/20 04:40 White Blood Count 10.4 K/UL (4.8-10.8) Red Blood Count 4.46 M/UL (4.20-5.40) Hemoglobin 13.7 G/DL (12.0-16.0) Hematocrit 42.2 % (37.0-47.0) Mean Corpuscular Volume 94 FL (80-99) Mean Corpuscular Hemoglobin 30.6 PG (27.0-31.0) Mean Corpuscular Hemoglobin Concent 32.4 G/DL (32.0-36.0) Red Cell Distribution Width 13.2 % (11.6-14.8) Platelet Count 319 K/UL (150-450) Mean Platelet Volume 6.8 FL (6.5-10.1) Neutrophils (%) (Auto) 79.5 % (45.0-75.0) H Lymphocytes (%) (Auto) 13.8 % (20.0-45.0) L Monocytes (%) (Auto) 4.6 % (1.0-10.0) Eosinophils (%) (Auto) 1.0 % (0.0-3.0) Basophils (%) (Auto) 1.0 % (0.0-2.0) Sodium Level 137 MMOL/L (136-145) Potassium Level 3.3 MMOL/L (3.5-5.1) L Chloride Level 99 MMOL/L (98-107) Carbon Dioxide Level 25 MMOL/L (21-32) Anion Gap 13 mmol/L (5-15) Blood Urea Nitrogen 4 mg/dL (7-18) L Creatinine 0.7 MG/DL (0.55-1.30) Estimat Glomerular Filtration Rate > 60 mL/min (>60) Glucose Level 135 MG/DL (74-106) H Lactic Acid Level 1.60 mmol/L (0.4-2.0) Calcium Level 9.8 MG/DL (8.5-10.1) Total Bilirubin 0.7 MG/DL (0.2-1.0) Aspartate Amino Transf (AST/SGOT) 26 U/L (15-37) Alanine Aminotransferase (ALT/SGPT) 27 U/L (12-78) Alkaline Phosphatase 64 U/L (46-116) Total Protein 8.9 G/DL (6.4-8.2) H Albumin 4.4 G/DL (3.4-5.0) Globulin 4.5 g/dL Albumin/Globulin Ratio 1.0 (1.0-2.7) Lipase 307 U/L (73-393) Serum Alcohol < 3 mg/dL Urine Color Pale yellow Urine Appearance Clear Urine pH 8 (4.5-8.0) Urine Specific Trail 1.010 (1.005-1.035) Urine Protein 1+ (NEGATIVE) H Urine Glucose (UA) Negative (NEGATIVE) Urine Ketones 1+ (NEGATIVE) H Urine Blood Negative (NEGATIVE) Urine Nitrite Negative (NEGATIVE) Urine Bilirubin Negative (NEGATIVE) Urine Urobilinogen Normal MG/DL (0.0-1.0) Urine Leukocyte Esterase Negative (NEGATIVE) Urine RBC 0-2 /HPF (0 - 2) Urine WBC 0-2 /HPF (0 - 2) Urine Squamous Epithelial Cells Occasional /LPF Urine Bacteria Occasional /HPF (NONE) Urine HCG, Qualitative Negative (NEGATIVE) Urine Opiates Screen Negative (NEGATIVE) Urine Barbiturates Screen Negative (NEGATIVE) Phencyclidine (PCP) Screen Negative (NEGATIVE) Urine Amphetamines Screen Negative (NEGATIVE) Urine Benzodiazepines Screen Negative (NEGATIVE) Urine Cocaine Screen Negative (NEGATIVE) Urine Marijuana (THC) Screen Positive (NEGATIVE) H Height (Feet): 5 Height (Inches): 11.00 Weight (Pounds): 215 Medications Current Medications Medications (Trade) Dose Ordered Sig/Noel Route PRN Reason Start Time Stop Time Status Last Admin Dose Admin Acetaminophen (Tylenol) 650 mg Q6H PRN ORAL Mild Pain (Pain Scale 1-3) 09/18/20 16:15 10/18/20 16:14 Acetaminophen (Tylenol) 650 mg Q6H PRN ORAL Temp > 101 09/18/20 16:15 2/22/21 16:14 Acetaminophen (Tylenol) 650 mg Q6H PRN ORAL Mild Pain (Pain Scale 1-3) 09/18/20 16:30 10/18/20 16:29 Acetaminophen (Tylenol) 650 mg Q6H PRN ORAL headache 09/18/20 16:30 10/18/20 16:29 Amlodipine Besylate (Norvasc) 10 mg DAILY ORAL 09/18/20 17:00 10/18/20 16:59 Clonidine HCl (Catapres Tab) 0.1 mg Q4H PRN ORAL bp over 160 syst 09/18/20 16:15 12/17/20 16:14 Clonidine HCl (Catapres tab) 0.2 mg Q4H PRN ORAL For High Blood Pressure 09/18/20 16:15 12/17/20 16:14 Dextrose/Sodium Chloride 1,000 ml @ 50 mls/hr Q20H IV 09/18/20 16:15 10/18/20 16:14 Docusate Sodium (Colace) 100 mg THREE TIMES A DAY ORAL 09/18/20 18:00 10/18/20 17:59 Famotidine (Pepcid I.v.) 20 mg Q12HR IVP 09/18/20 21:00 10/18/20 20:59 Heparin Sodium (Porcine) (Heparin 5000 units/ml) 5,000 units EVERY 12 HOURS SUBQ 09/18/20 21:00 11/02/20 20:59 Hydralazine HCl (Apresoline) 25 mg Q6HR ORAL 09/18/20 18:00 12/17/20 17:59 Hydromorphone HCl (Dilaudid) 0.5 mg Q6H PRN SUBQ Severe Pain (Pain Scale 7-10) 09/18/20 16:15 09/25/20 16:14 Ketorolac Tromethamine (Toradol 30mg) 30 mg Q6H PRN IV Moderate Pain (Pain Scale 4-6) 09/18/20 16:15 09/23/20 16:14 Lisinopril (ZestriL) 10 mg DAILY ORAL 09/19/20 09:00 10/19/20 08:59 UNV Metoclopramide HCl (Reglan) 10 mg Q6H PRN IVP Nausea & Vomiting 09/18/20 16:15 10/18/20 16:14 Metoclopramide HCl (Reglan) 10 mg THREE TIMES A DAY ORAL 09/18/20 18:00 10/18/20 17:59 Ondansetron HCl (Zofran) 4 mg Q6H PRN IVP Nausea & Vomiting 09/18/20 16:15 10/18/20 16:14 Potassium Chloride 100 ml @ 100 mls/hr Q1H IVPB 09/18/20 17:00 09/18/20 20:59 Assessment/Plan Status: stable Status Narrative C/o abdominal pain, denies chest pain, orthopnea, SOB at rest. SBP elevated, sinus tach Diagnosis [place] I: 1. Abdominal pain 2. Hypertensive emergency/urgency responding to multiple antihypertensives 3. N/V - improving on medical therapy 4. h/o gestational HTN Echo pending to assess LV function. Antihypertensives adjusted for better SBP control, responding appropriately. Troponin pending, denies chest pain, EKG SR without acute ischemic changes, ACS unlikely. Further recs to follow. MIPS Medication Reconciliation Is this a Psycho/Diag encounte: No Depression Does this Patient have Dementi: No Lindsay Harmon PA-C Sep 18, 2020 17:00
[2020-09-18] MEDS: Docusate 100mg cap ORAL SCH (17:12)
[2020-09-18] MEDS: D5NS 1,000 ML IV SCH (17:12)
[2020-09-18] MEDS: HydrALAZINE 25mg tab ORAL SCH (17:12)
--- NOTE | 2020-09-18 19:34 | NUR ---
NURSE NOTES: Patient received from Kenia BULLARD. Patient alert and oriented x4. No c/o pain and no s/s of distress. Saturating well on room air. on npo for nausea and vomiting. IV site patent and intact on Lef AC 20G. no erythema, redness noted. Skin is intact. Bed in lowest position and locked. Call light and bedside table within reach.
--- NOTE | 2020-09-18 19:35 | NUR ---
NURSE HAND-OFF REPORT: Important Events on Shift:[Potassium running] Patient Status: [Full code] Diet: [Low sodium] Pending Orders: [] Pending Results/Labs:[] Pending MD notification:[] Latest Vital Signs: Temperature 97.4 , Pulse 64 , B/P 154 /97 , Respiratory Rate 18 , O2 SAT 100 , Room Air, O2 Flow Rate . Vital Sign Comment: [] EKG Rhythm: Sinus Rhythm Rhythm change?: N MD Notified?: - MD Response: Latest Bullock Fall Score: 20 Fall Risk: Low Risk Safety Measures: Call light Within Reach, Bed Alarm Zone 2, Side Rails Side Rails x2, Bed position Low and Locked. Fall Precautions: Yellow Socks Yellow Gown Patient Fall Education Report given to [ALEAH Diaz].
[2020-09-18] MEDS: Heparin 5000 units/ml inj SUBQ SCH (20:34)
[2020-09-19] VITALS: BP 126/80
[2020-09-19] MEDS: HydrALAZINE 25mg tab ORAL SCH ×2 (00:27→05:23)
[2020-09-19 04:00] VITALS: BP 110/69
--- NOTE | 2020-09-19 06:38 | NUR ---
NURSE HAND-OFF REPORT: Important Events on Shift:[no significant events during shift] Patient Status: [stable, FC, a&ox4] Diet: [NPO] Pending Orders: [] Pending Results/Labs:[] Pending MD notification:[] Latest Vital Signs: Temperature 98.8 , Pulse 67 , B/P 138 /84 , Respiratory Rate 19 , O2 SAT 98 , Room Air, O2 Flow Rate . Vital Sign Comment: [] EKG Rhythm: Sinus Rhythm Rhythm change?: N MD Notified?: - MD Response: Latest Bullock Fall Score: 20 Fall Risk: Low Risk Safety Measures: Call light Within Reach, Bed Alarm Zone 1, Side Rails Side Rails x2, Bed position Low and Locked. Fall Precautions: Yellow Socks Yellow Gown Door Sign Patient Fall Education Report given to [].
--- NOTE | 2020-09-19 07:28 | NUR ---
NURSE NOTES: Received patient in bed. Awake, A/O x4. On room air, respirations unlabored. Patient denies pain. IV in the Left AC, infusing IVf as ordered. Bed low and locked, side rails up x2, call light within reach with return demonstration.
--- NOTE | 2020-09-19 07:33 | NUR ---
HAND-OFF: Report given to [ Thomas BULLARD].
[2020-09-19 08:00] VITALS: BP 112/72
--- NOTE | 2020-09-19 08:26 | History & Physical ---
History and Physical History & Physicial seen and examined. Dictation completed. Lindsey Brower MD Sep 19, 2020 08:26
--- NOTE | 2020-09-19 08:27 | General Progress Note ---
Subjective Allergies: Coded Allergies: No Known Allergies (Unverified , 04/28/18) Objective Last 24 Hour Vital Signs Date Time Temp Pulse Resp B/P (MAP) Pulse Ox O2 Delivery O2 Flow Rate FiO2 09/19/20 05:23 138/84 09/19/20 04:00 98.8 67 19 110/69 (83) 98 09/19/20 03:35 85 09/19/20 00:27 126/80 09/19/20 00:00 98.9 87 18 126/80 (95) 98 09/18/20 23:55 76 09/18/20 21:00 Room Air 09/18/20 20:00 99.0 82 18 135/85 (102) 98 09/18/20 20:00 87 09/18/20 17:24 64 154/97 09/18/20 17:12 154/97 09/18/20 16:00 68 09/18/20 16:00 97.4 80 18 155/94 (114) 100 09/18/20 15:55 97.0 64 14 154/97 97 Room Air 09/18/20 15:47 Room Air 09/18/20 14:21 97.0 64 14 154/97 97 Room Air 09/18/20 13:06 202/94 09/18/20 13:06 97.0 89 18 202/94 98 Room Air 09/18/20 09:34 82 18 161/103 98 Room Air 09/18/20 08:30 182/93 09/18/20 08:28 81 18 182/93 98 Room Air Height (Feet): 5 Height (Inches): 11.00 Weight (Pounds): 215 Assessment/Plan Assessment/Plan: Dictation in progress A/P: 1- Hypertensive Emergency 2- Hypokalemia Plan: Dc Dilaudid Optimize BP meds ID/Nephro/ Cardiology services are consulted Lindsey Brower MD Sep 19, 2020 08:27
[2020-09-19] MEDS: Docusate 100mg cap ORAL SCH ×2 (09:00→13:00)
[2020-09-19] MEDS ORDERED: Lisinopril 10mg tab ORAL SCH (09:00)
[2020-09-19] MEDS: Heparin 5000 units/ml inj SUBQ SCH (09:00)
[2020-09-19 09:16] VITALS: BP 112/72
--- NOTE | 2020-09-19 10:18 | General Progress Note ---
Subjective ROS Limited/Unobtainable: Yes Allergies: Coded Allergies: No Known Allergies (Unverified , 04/28/18) Objective Last 24 Hour Vital Signs Date Time Temp Pulse Resp B/P (MAP) Pulse Ox O2 Delivery O2 Flow Rate FiO2 09/19/20 09:16 112/72 09/19/20 09:16 60 112/72 09/19/20 09:00 Room Air 09/19/20 08:00 79 09/19/20 08:00 98.0 60 20 112/72 (85) 94 09/19/20 05:23 138/84 09/19/20 04:00 98.8 67 19 110/69 (83) 98 09/19/20 03:35 85 09/19/20 00:27 126/80 09/19/20 00:00 98.9 87 18 126/80 (95) 98 09/18/20 23:55 76 09/18/20 21:00 Room Air 09/18/20 20:00 99.0 82 18 135/85 (102) 98 09/18/20 20:00 87 09/18/20 17:24 64 154/97 09/18/20 17:12 154/97 09/18/20 16:00 68 09/18/20 16:00 97.4 80 18 155/94 (114) 100 09/18/20 15:55 97.0 64 14 154/97 97 Room Air 09/18/20 15:47 Room Air 09/18/20 14:21 97.0 64 14 154/97 97 Room Air 09/18/20 13:06 202/94 09/18/20 13:06 97.0 89 18 202/94 98 Room Air Height (Feet): 5 Height (Inches): 11.00 Weight (Pounds): 215 General Appearance: no apparent distress EENT: normal ENT inspection Neck: supple Cardiovascular: normal rate Respiratory/Chest: decreased breath sounds Abdomen: hypoactive bowel sounds Extremities: non-tender Assessment/Plan Assessment/Plan: ? cannabinoid hyperemesis syndrome neg CT h/o cholecystectomy normal labs ivf pain control repeat labs clears will fu Galileo Reyes MD Sep 19, 2020 10:18
--- NOTE | 2020-09-19 11:24 | Nephrology Progress Note ---
Assessment/Plan Problem List: (1) Intractable vomiting with nausea (2) Hypertension (3) Abdominal pain Assessment Uncontrolled hypertension Abdominal pain and intractable vomiting Marijuana abuse History of asthma History of cholecystectomy Plan September 19: Blood pressure medication adjusted. Today's labs pending. Continue as is. Previously: N.p.o. IV hydration IV Reglan as needed As needed BP medications Norvasc 10 mg daily Monitor electrolytes Subjective ROS Limited/Unobtainable: No Constitutional: Reports: malaise Objective Objective Last 24 Hour Vital Signs Date Time Temp Pulse Resp B/P (MAP) Pulse Ox O2 Delivery O2 Flow Rate FiO2 09/19/20 09:16 112/72 09/19/20 09:16 60 112/72 09/19/20 09:00 Room Air 09/19/20 08:00 79 09/19/20 08:00 98.0 60 20 112/72 (85) 94 09/19/20 05:23 138/84 09/19/20 04:00 98.8 67 19 110/69 (83) 98 09/19/20 03:35 85 09/19/20 00:27 126/80 09/19/20 00:00 98.9 87 18 126/80 (95) 98 09/18/20 23:55 76 09/18/20 21:00 Room Air 09/18/20 20:00 99.0 82 18 135/85 (102) 98 09/18/20 20:00 87 09/18/20 17:24 64 154/97 09/18/20 17:12 154/97 09/18/20 16:00 68 09/18/20 16:00 97.4 80 18 155/94 (114) 100 09/18/20 15:55 97.0 64 14 154/97 97 Room Air 09/18/20 15:47 Room Air 09/18/20 14:21 97.0 64 14 154/97 97 Room Air 09/18/20 13:06 202/94 09/18/20 13:06 97.0 89 18 202/94 98 Room Air refused Height (Feet): 5 Height (Inches): 11.00 Weight (Pounds): 215 General Appearance: no apparent distress Cardiovascular: normal rate Respiratory/Chest: decreased breath sounds Abdomen: soft Junior Herrera MD Sep 19, 2020 11:24
[2020-09-19] MEDS ORDERED: HydrALAZINE 10mg Tab ORAL SCH (12:00)
--- NOTE | 2020-09-19 12:02 | Cardiology Progress Note ---
Assessment/Plan Status: doing well Status Narrative Feeling better, tolerating diet. Asking to go home. Assessment/Plan 1. Abdominal pain - improved CT abd non-acute 2. Hypertensive emergency/urgency responding to multiple antihypertensives SBP now well controlled 3. N/V - resolved 4. h/o gestational HTN Echo pending to assess LV function, may continue cardiac work-up as outpatient. SBP now well controlled. Recommend low salt diet and GDMT for HTN after discharge, stable. Subjective ROS Limited/Unobtainable: No Cardiovascular: Reports: no symptoms Respiratory: Reports: no symptoms Gastrointestinal/Abdominal: Reports: no symptoms Genitourinary: Reports: no symptoms Subjective Feeling much better this morning, denies abdominal pain or chest pain Objective Last 24 Hour Vital Signs Date Time Temp Pulse Resp B/P (MAP) Pulse Ox O2 Delivery O2 Flow Rate FiO2 09/19/20 09:16 112/72 09/19/20 09:16 60 112/72 09/19/20 09:00 Room Air 09/19/20 08:00 79 09/19/20 08:00 98.0 60 20 112/72 (85) 94 09/19/20 05:23 138/84 09/19/20 04:00 98.8 67 19 110/69 (83) 98 09/19/20 03:35 85 09/19/20 00:27 126/80 09/19/20 00:00 98.9 87 18 126/80 (95) 98 09/18/20 23:55 76 09/18/20 21:00 Room Air 09/18/20 20:00 99.0 82 18 135/85 (102) 98 09/18/20 20:00 87 09/18/20 17:24 64 154/97 09/18/20 17:12 154/97 09/18/20 16:00 68 09/18/20 16:00 97.4 80 18 155/94 (114) 100 09/18/20 15:55 97.0 64 14 154/97 97 Room Air 09/18/20 15:47 Room Air 09/18/20 14:21 97.0 64 14 154/97 97 Room Air 09/18/20 13:06 202/94 09/18/20 13:06 97.0 89 18 202/94 98 Room Air General Appearance: no apparent distress EENT: PERRL/EOMI Neck: non-tender, no JVD Rhythm: NSR Cardiovascular: normal rate, regular rhythm Respiratory/Chest: lungs clear, no respiratory distress Abdomen: soft Extremities: no swelling 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
[2020-09-19] MEDS: D5NS 1,000 ML IV SCH (12:15)
--- NOTE | 2020-09-19 13:14 | NUR ---
NURSE NOTES: Patient discharged to home via family member's vehicle. Iv site removed, ID band removed, belongings list verified. RN walked with the patient to the car.
--- NOTE | 2020-09-19 14:13 | Diagnostic Imaging Report ---
EXAM: US Abdomen Complete CLINICAL HISTORY: ABD PAIN TECHNIQUE: Real-time ultrasound of the abdomen with image documentation. COMPARISON: CT abdomen and pelvis 09/17/20 FINDINGS: Liver: Liver measures 18.8 cm. No intrahepatic bile duct dilation. Gallbladder: Gallbladder surgically removed. Common bile duct: CBD normal, 2.7 mm. No stones. No dilation. Pancreas: Unremarkable as visualized. Kidneys: Right kidney 11.76 x 6.2 cm. Left kidney measures 10.2 x 7.5 x 6.8 cm. No stones. No hydronephrosis. Spleen: Spleen 9.3 cm. Aorta: Unremarkable. No aneurysm. Inferior vena cava: Unremarkable. IMPRESSION: 1. Mild hepatomegaly. 2. Gallbladder surgically removed. No biliary dilatation.
--- NOTE | 2020-09-21 11:14 | NUR ---
insurance clinicals faxed to [employer] [phone]
--- NOTE | 2020-09-22 14:40 | Discharge Summary ---
Discharge Summary Discharge Summary _ Date of admission: 09/18/2020 Date of discharge: 09/19/[address] Brower History of Present Illness and Brief Hospital Course Ms. Luther is a 35-year-old female with past medical history of hypertension, and asthma, who presented to the ED for evaluation of abdominal pain with nausea and vomiting x3 days. She was having severe, diffuse abdominal pain associated with nonbloody and nonbilious vomiting. CT of abdomen pelvis was negative for acute findings. She was admitted to the hospital for further management. Toxicology screening was positive for marijuana in urine. Cannabinoid hyperemesis syndrome was a possible etiology. She had history of cholecystect erwin. CT of head was negative for acute intracranial hemorrhage, midline shift, or mass-effect. Abdominal ultrasound revealed mild hepatomegaly. She initially presented with markedly elevated systolic blood pressure Her blood pressure responded well to multiple antihypertensives. She did report history of gestational hypertension but denied being on any antihypertensives since gestation. Echocardiogram was ordered to assess left ventricular function but not completed. It was just determined that patient can receive echocardiogram as an outpatient. Low-salt diet and GDMT were recommended for hypertension after discharge. On day 2 of admission, patient's pain was moderately controlled and nausea and vomiting stopped. Imaging studies were unremarkable and patient was medically stable for discharge. Patient was discharged home on 09/19/2020. Consultants: Cardiology Dr. Thomas Nephrology Dr. Chavez Discharge Condition Improved and stable Final diagnoses Hypertensive emergency/urgency Abdominal pain Nausea and vomiting History of gestational hypertension Uncontrolled hypertension Marijuana abuse History of asthma History of cholecystectomy Hypokalemia Possible cannabinoid hyperemesis syndrome I have been assigned to dictate discharge summary for this account. I was not involved in the patient's management Valerio Rice Sep 22, 2020 14:40
== END 2020-09-19 13:16 | disposition home or self-care (01) | DRG 199 ==
LOC: EDBD 03:57 → EMR 04:07 → EDBEDREQSVC 13:04 → EDBEDREQ 13:04 → 2E 14:34
DX: I16.0 Hypertensive urgency (principal); R10.9 Unspecified abdominal pain; R11.2 Nausea with vomiting, unspecified; E87.6 Hypokalemia; Z90.49 Acquired absence of other specified parts of digestive tract; F12.10 Cannabis abuse, uncomplicated; J45.909 Unspecified asthma, uncomplicated
CPT/HCPCS: 36415; 70450; 74176; 76700; 80053; 80307; 81003; 81025; 83605; 83690; 85025; 87040; 93306; 96361; 96374; 96375; 96376; 99285; G0480; J2405; J7030